=== PATIENT | male | born 1960 | race Caucasian/White ===

== ENCOUNTER 2019-05-23 06:37 | Inpatient (IN) ==
--- NOTE | 2019-05-17 08:52 | EKG Report ---
Test Performed on : 05/17/2019 08:28:54 AM Test Reason : pat Blood Pressure : / mmHG Vent. Rate : 077 BPM Atrial Rate : 077 BPM P-R Int : 162 ms QRS Dur : 120 ms QT Int : 398 ms P-R-T Axes : 032 009 036 degrees QTc Int : 450 ms Normal sinus rhythm. Cannot rule out Anterior infarct , age undetermined Abnormal ECG When compared with ECG of 05-NOV-2016 10:45, No significant change was found Confirmed by Mike ANDRADE, Edgar Mendosa ([id number]) on 05/17/2019 5:31:20 PM
[2019-05-17 10:24] LABS: HEMOGLOBIN A1C 5.5 % (4.8-6.0)
[2019-05-17 13:17] LABS: URINE SOURCE CLEAN CATCH
[2019-05-17 13:20] LABS: BASO# 0.04 X1000 (0.0-0.2); BASO% 0.4 % (0.0-0.8); EOS# 0.15 X1000 (0.0-0.7); EOS% 1.6 % (0.0-10.0); HEMATOCRIT 38.7 % (42.0-52.0); HEMOGLOBIN 12.1 g/dL (14.0-18.0); IMM GRAN# 0.02 X1000 (0.0-0.04); IMM GRAN% 0.2 % (0.0-0.5); LYMPH# 2.41 X1000 (1.2-3.4); LYMPH% 25.7 % (20.5-51.1); MCHC 31.3 g/dL (33-37); MCV 92.8 FL (81-99); MONO# 0.66 X1000 (0.11-0.59); MONO% 7.1 % (1.7-9.3); MPV 10.7 FL (7.4-10.4); NEUT# 6.08 X1000 (1.4-6.5); PLT 257 X1000 (130-400); RBC 4.17 XMIL (4.7-6.1); RDW 13.4 % (11.5-14.5); WBC 9.36 X1000 (4.8-10.8)
[2019-05-17 13:21] LABS: BILIRUBIN URINE NEGATIVE (NEGATIVE); BLOOD URINE NEGATIVE (NEGATIVE); COLOR YELLOW; GLUCOSE URINE NEGATIVE (NEGATIVE); KETONE URINE NEGATIVE (NEGATIVE); LEUKOCYTES URINE NEGATIVE (NEGATIVE); NITRITE URINE NEGATIVE (NEGATIVE); PH URINE 5.5; PROTEIN URINE NEGATIVE (NEGATIVE); SP GRAVITY URINE 1.019; TURBIDITY URINE CLEAR (CLEAR); UROBILINOGEN URINE NORMAL (NORMAL)
[2019-05-17 13:22] LABS: UR EPITHELIAL CELLS <10 /HPF (<10); URINE BACTERIA NEGATIVE /HPF; URINE RBC <10 /HPF (<10); URINE WBC <10 /HPF (<10)
[2019-05-17 13:29] LABS: INR 0.93; PROTIME 13.3 Seconds (11.0-16.0)
[2019-05-17 14:05] LABS: AGAP 11; BUN 16 mg/dL (8-22); CALCIUM 8.8 mg/dL (8.8-10.2); CHLORIDE 105 mmol/L (98-107); COSMO 291; CREATININE 0.9 mg/dL (0.7-1.2); ESTIMATED GFR > 60; GLUCOSE 150 mg/dL (70-104); POTASSIUM 3.8 mmol/L (3.5-5.1); SODIUM 144 mmol/L (136-145); TCO2 28 mmol/L (25-35)
[2019-05-23] MEDS ORDERED: DIPRIVAN 1% ONE (06:42)
[2019-05-23] MEDS ORDERED: PEPCID ONE (07:17)
[2019-05-23] MEDS ORDERED: LYRICA ONE (07:17)
[2019-05-23] MEDS ORDERED: KEFZOL 1 GM/D5W 2 GM/100 ML IVPB ONE (07:17)
[2019-05-23] MEDS ORDERED: LR 1,000 ML ONE (07:17)
[2019-05-23] MEDS ORDERED: CELEBREX ONE (07:17)
[2019-05-23] MEDS ORDERED: COLACE ONE (07:17)
[2019-05-23] MEDS ORDERED: DURAMORPH ONE (08:12)
[2019-05-23] MEDS ORDERED: TORADOL ONE (08:12)
[2019-05-23] MEDS ORDERED: VANCOMYCIN ONE (08:13)
[2019-05-23] MEDS ORDERED: SODIUM CHLORIDE 0.9% ONE (08:13)
[2019-05-23] MEDS ORDERED: MARCAINE 0.25% PF/EPI 1:200,000 ONE (08:13)
[2019-05-23] MEDS ORDERED: EXPAREL 1.3% ONE (08:14)
[2019-05-23] MEDS ORDERED: NEOSPORIN G.U. IRRIGANT ONE (08:14)
[2019-05-23] MEDS ORDERED: FENTANYL ONE ×2 (08:15→08:22)
[2019-05-23] MEDS ORDERED: XYLOCAINE-MPF 2% ONE (08:19)
[2019-05-23] MEDS ORDERED: DIPRIVAN 1% 500 MG/50 ML BOTTLE ONE (08:21)
[2019-05-23] MEDS ORDERED: VERSED ONE (08:59)
[2019-05-23] MEDS: CYKLOKAPRON 1,000 MG/NS 2,000 MG/200 ML IVPB ONE ×2 (09:40→11:13)
[2019-05-23 10:26] LABS: URINE SOURCE CATH
[2019-05-23 10:28] LABS: BILIRUBIN URINE NEGATIVE (NEGATIVE); BLOOD URINE NEGATIVE (NEGATIVE); COLOR YELLOW; GLUCOSE URINE NEGATIVE (NEGATIVE); KETONE URINE NEGATIVE (NEGATIVE); LEUKOCYTES URINE NEGATIVE (NEGATIVE); NITRITE URINE NEGATIVE (NEGATIVE); PH URINE 5.5; PROTEIN URINE NEGATIVE (NEGATIVE); SP GRAVITY URINE 1.015; TURBIDITY URINE CLEAR (CLEAR); UR EPITHELIAL CELLS <10 /HPF (<10); URINE BACTERIA NEGATIVE /HPF; URINE RBC <10 /HPF (<10); URINE WBC <10 /HPF (<10); UROBILINOGEN URINE NORMAL (NORMAL)
[2019-05-23] MEDS ORDERED: OFIRMEV 1000 MG/ISOTONIC SOLN 1,000 MG/100 ML BOTTLE ONE (10:49)
[2019-05-23] MEDS: DILAUDID ONE ×2 (12:25→12:28)
[2019-05-23] MEDS ORDERED: DILAUDID ONE (12:40)
[2019-05-23] MEDS ORDERED: NS 1,000 ML ONE (12:40)
[2019-05-23] MEDS ORDERED: ZOFRAN IV PRN (13:30)
[2019-05-23] MEDS ORDERED: ZOFRAN ODT PO PRN (13:30)
[2019-05-23] MEDS ORDERED: MORPHINE IV PRN ×3 (13:30)
[2019-05-23] MEDS ORDERED: OXY IR PO PRN (13:30)
[2019-05-23] MEDS ORDERED: MILK OF MAGNESIA PO PRN (13:30)
[2019-05-23] MEDS: OXY IR PO PRN ×3 (14:41→21:47)
--- NOTE | 2019-05-23 14:57 | OPERATIVE NOTE ---
PROCEDURE DATE: 05/23/2019 PREOPERATIVE DIAGNOSIS: Left knee degenerative joint disease. POSTOPERATIVE DIAGNOSIS: Left degenerative joint disease. PROCEDURE PERFORMED: Left total knee arthroplasty using [facility] size 8 femoral component, a size 9 tibial base plate, a 16 mm articular insert and a 38 mm patellar component. ANESTHESIA: Spinal and general combined. SURGEON: Richard Mast MD GRAPHIC DESIGN PROFESSOR: Loida Simms PA-C, who was present throughout the case. Her assistance was critical for exposure, placement of the implants, and wound closure. Her assistance was necessary for successful completion of the case. BLOOD LOSS: Minimal. TOURNIQUET TIME: Approximately an hour and a half. DESCRIPTION OF PROCEDURE: The patient was brought to the operative suite and placed in supine position. After successful administration of spinal anesthesia, he was found to be the sleep apneic and therefore LMA was placed. A well-padded tourniquet was then placed on left proximal thigh and the left lower extremity was prepped and draped in usual sterile fashion. Leg was exsanguinated. Tourniquet insufflated to 400 torr. A longitudinal incision was made beginning at the superior pole of the patella and extended distally to the tibia tuberosity. A medial arthrotomy was made. The capsule was elevated off the medial aspect of the tibia. The ACL, PCL, medial meniscus, and lateral meniscus were excised. A drill was entered in the distal femur. Intramedullary guide was placed. Distal cutting block was pinned in place. Distal cut was made with oscillating saw. The marginal osteophytes were removed. Attention was directed to the tibia. A drill was entered into the center of the tibia. Intramedullary guide was placed. Alignment was checked with drop mackenzie referencing off the anterior cortex of the tibia and the second ray of the foot, and taking 4 mm off the low side of the tibia, which in this case was medially. The tibial cutting block was pinned into place and the articular surface of the tibial plateau was removed with oscillating saw. Marginal osteophytes removed with rongeur. The knee was taken out into extension. After we were certain that all the meniscal tissue was removed, the extension gap was checked and found to be tight medially. A medial release was performed. At this point, we were balanced at 16 mm. We set the flexion gap in to 25 mm to account for the 9 mm of the posterior condyle of the femur. Once this was set and rotation was properly set based upon this, the femur was pinned and then a cutting block was pinned into place. The anterior cuts, chamfer cuts, and posterior condylar cuts were made with the oscillating saw. Marginal osteophytes were removed with a rongeur. A box cutting block was pinned into place. Box cut was made with a box osteotome and oscillating saw. Posterior condylar osteophytes were removed with a curved osteotome and rongeur. The exposure of the canal was irrigated with normal saline containing irrigant and then suctioned, and then the hole was plugged with a piece of bone from the anterior chamber. Once this was completed, attention was directed to the tibia. The tibia was subluxed anteriorly and sized to a size 9. A size 9 guide was used for the fin punch. The tibial trial, femoral trial, and 16 mm articular insert were placed and taken through a range of motion and found to have excellent alignment, balancing, and range of motion. Attention was directed to the patella. Then 9 mm of the articular surface of patella were removed with oscillating saw. Patella sized to size 38. A size 3 guide was used to drill peg holes. Lateral facet was chamfered 30 to 45 degrees. Patella trial was placed, taken through range of motion and found to have subluxation of the patella laterally. A lateral release was performed. When we were found to have excellent patella tracking. All trials were then removed. Knee was copiously irrigated and dried, being certain all bone debris was removed. The tibial component, femoral component, and patellar component were cemented in place, excess cement being removed with a [place]. Once the cement had hardened, excess cement was again removed with an osteotome. Knee was again copiously irrigated and dried, being certain all bone and cement debris were removed. The trial articular insert was removed and the knee was copiously infiltrated with Exparel, including the posterior capsule, anterior capsule, medial and lateral collateral ligaments, anterior musculature, and subcutaneous tissue. The tourniquet was deflated and hemostasis was obtained with electrocautery. The definitive 16 mm articular insert was locked into place. A drain was placed exiting superior laterally and buried in the lateral gutter. The knee was again copiously irrigated with normal saline containing irrigant and Vashe irrigation. The medial arthrotomy was closed with #1 Vicryl. The skin edge approximated with 2-0 Vicryl. Skin was closed with Prineo and a sterile dressing was applied. The patient tolerated the procedure well without complication. At the end of the procedure, all counts correct x2. The patient was transferred to the recovery room in stable condition. cc: Richard Mast MD MTDD
[2019-05-23] MEDS: TYLENOL PO SCH ×2 (17:02→21:46)
[2019-05-23] MEDS: ULTRAM PO SCH ×2 (17:02→22:00)
[2019-05-23] MEDS: KEFZOL 2 GM/D5W 2 GM/50 ML IVPB IV SCH (17:03)
[2019-05-23] MEDS ORDERED: LOFIBRA PO SCH (21:00)
[2019-05-23] MEDS ORDERED: MIRAPEX PO SCH (21:00)
[2019-05-23] MEDS ORDERED: REQUIP PO SCH (21:00)
[2019-05-23] MEDS ORDERED: LYRICA PO SCH (21:00)
[2019-05-23] MEDS ORDERED: ZOLOFT PO SCH (21:00)
[2019-05-23] MEDS: PERIDEX MT SCH (21:45)
[2019-05-23] MEDS: COLACE PO SCH (21:50)
[2019-05-23] MEDS: NS 1,000 ML IV SCH (21:50)
[2019-05-23] MEDS: PATIENT'S OWN MED PO SCH (21:52)
[2019-05-23] MEDS: BUMEX PO SCH (22:02)
[2019-05-24] MEDS: KEFZOL 2 GM/D5W 2 GM/50 ML IVPB IV SCH (01:43)
[2019-05-24] MEDS: PATIENT'S OWN MED PO SCH ×2 (01:59→11:25)
[2019-05-24] MEDS: ULTRAM PO SCH ×2 (03:33→11:25)
[2019-05-24] MEDS: TYLENOL PO SCH ×3 (03:34→11:24)
[2019-05-24 06:10] LABS: HEMOGLOBIN 9.3 g/dL (14.0-18.0)
[2019-05-24] MEDS: NS 1,000 ML IV SCH (06:20)
[2019-05-24 06:34] LABS: AGAP 10; BUN 15 mg/dL (8-22); CALCIUM 7.8 mg/dL (8.8-10.2); CHLORIDE 106 mmol/L (98-107); COSMO 288; CREATININE 0.8 mg/dL (0.7-1.2); ESTIMATED GFR > 60; GLUCOSE 144 mg/dL (70-104); POTASSIUM 3.9 mmol/L (3.5-5.1); SODIUM 143 mmol/L (136-145); TCO2 27 mmol/L (25-35)
[2019-05-24] MEDS: OXY IR PO PRN (06:56)
[2019-05-24 07:46] VITALS: BP 119/51
[2019-05-24] MEDS ORDERED: ZOLOFT PO SCH (09:00)
[2019-05-24] MEDS ORDERED: LYRICA PO SCH (09:00)
[2019-05-24] MEDS ORDERED: DECADRON IV ONE (09:00)
[2019-05-24] MEDS ORDERED: ABILIFY PO SCH (09:00)
[2019-05-24] MEDS ORDERED: ASPIRIN PO SCH (09:00)
[2019-05-24] MEDS ORDERED: PEPCID PO SCH (09:00)
[2019-05-24] MEDS ORDERED: WELLBUTRIN XL PO SCH (09:00)
[2019-05-24] MEDS ORDERED: VITAMIN D PO SCH (09:00)
[2019-05-24] MEDS ORDERED: PRINIVIL PO SCH (09:00)
[2019-05-24] MEDS ORDERED: VITAMIN E PO SCH (09:00)
[2019-05-24] MEDS ORDERED: KLOR-CON PO SCH (09:00)
[2019-05-24] MEDS: PERIDEX MT SCH (11:21)
[2019-05-24] MEDS: BUMEX PO SCH (11:22)
[2019-05-24] MEDS: COLACE PO SCH (11:23)
--- NOTE | 2019-05-24 14:44 | DISCHARGE SUMMARY ---
ADMISSION DATE: 05/23/2019 DISCHARGE DATE: 05/24/2019 DISCHARGE DIAGNOSIS: Left knee degenerative joint disease status post left total knee arthroplasty. DISCHARGE MEDICATIONS: See discharge med list. DISPOSITION: The patient discharged home with instructions for home health physical therapy. Instructed to return for any signs or symptoms of infection or deep venous thrombosis. Instructed to return to see Dr. Mast next . HOSPITAL COURSE: On the day of admission, patient underwent a left total knee arthroplasty. His postoperative course was unremarkable. At discharge, he is afebrile, tolerating a regular diet, ambulating well with physical therapy. Wound is clean, dry, intact without sign of infection. His leg is neurovascularly intact. He has no sign of deep venous thrombosis. He is discharged home in stable condition and instructed to follow up as described above. cc: Richard Mast MD
== END 2019-05-24 12:20 | disposition home health service (06) | DRG 470 ==
LOC: 4N 06:37 → OPS 06:37 → OBSVTOIN 09:51
PROVIDERS: ADMIT Orthopaedic Surgery; ATTEND Orthopaedic Surgery
CPT/HCPCS: 80048; 81001; 82040; 83036; 85014; 85018; 85025; 85610; 85730; 86850; 86900; 86901; 88305; 88311; 94761; 94799; 97110; 97162; A9270; C9290; J0131; J0690; J1170; J1885; J2250; J2274; J2275; J3010; J3370; J7030; J7120; Q9974; S0020